=== PATIENT | male | born 1990 | race Two or more races ===

== ENCOUNTER 2020-08-08 04:22 | Emergency (ER) | payer SELFPAY ==
[~2020-08-08] VITALS: Ht 188 cm; Wt 88.5 kg
[2020-08-08] MEDS ORDERED: LIDOCAINE 1%-EPI 1:100,000 20 ML VIAL ONE (04:28)
[2020-08-08] MEDS ORDERED: SODIUM BICARBONATE 5 ML VIAL ONE (04:29)
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
[2020-08-08] MEDS ORDERED: CEPH500C2 PO (04:49)
--- NOTE | 2020-08-08 04:50 | NUR ---
lapd at bed side
[2020-08-08] MEDS ORDERED: LIDOCAINE 1%-EPI 1:100,000 20 ML VIAL TP ONE (05:00)
[2020-08-08] MEDS ORDERED: CEFTRIAXONE 1 G VIAL IM ONE (05:00)
[2020-08-08] MEDS ORDERED: TDAP [DIPH/PERTUSSIS/TET] 0.5 ML VIAL IM ONE ×2 (05:00→05:04)
[2020-08-08] MEDS ORDERED: SODIUM BICARBONATE 5 ML VIAL MC ONE (05:00)
[2020-08-08] MEDS ORDERED: LIDOCAINE /MPF 1% VIAL 5 ML VIAL ONE (05:03)
[2020-08-08] MEDS ORDERED: CEFEPIME 1 GM VIAL ONE (05:03)
[2020-08-08 05:22] VITALS: BP 131/86
--- NOTE | 2020-08-08 05:22 | NUR ---
Patient discharged to home in stable condition. Written and verbal after care instructions given. Patient verbalizes understanding of instruction and RX.
== END 2020-08-08 05:23 | disposition home or self-care (01) ==
LOC: ER 04:24
DX: S01.01XA Laceration without foreign body of scalp, initial encounter (principal); Z88.6 Allergy status to analgesic agent; V47.5XXA Car driver injured in collision with fixed or stationary object in traffic accident, initial encounter; Y93.89 Activity, other specified; Y92.413 State road as the place of occurrence of the external cause; Y99.8 Other external cause status
CPT/HCPCS: 12004; 90471; 90715; 96372; 99284; J0692; J3490 ×3

== ENCOUNTER 2020-08-18 09:30 | Emergency (ER) | payer MEDICAID ==
[~2020-08-18] VITALS: Ht 190.5 cm; Wt 86.2 kg
[~2020-08-18 09:30] MED LIST: CEPH500C2 PO
[2020-08-18 09:50] VITALS: BP 121/71
--- NOTE | 2020-08-18 10:15 | NUR ---
Patient discharged to home in stable condition. Written and verbal after care instructions given. Patient verbalizes understanding of instruction.
== END 2020-08-18 10:15 | disposition home or self-care (01) ==
LOC: ER 09:33
DX: S01.81XD Laceration without foreign body of other part of head, subsequent encounter (principal); Z88.6 Allergy status to analgesic agent; X58.XXXD Exposure to other specified factors, subsequent encounter